=== PATIENT | female | born 1950 | race Asian ===

== ENCOUNTER → 2016-12-29 | Outpatient (CLI) | payer MEDICARE, OTHER ==
--- NOTE | 2016-12-30 16:57 | RADRPT ---
Echocardiogram Report Patient Name: VAMSI AL Gender: Female Date: 1950 Study Date: 29-Dec-2016 Glass Bender: [facility] Location: EKG Ref. Physician: DAVID AUGUSTE Quality: Good Procedures: Transthoracic echocardiogram with complete 2D, M-Mode, and doppler examination. Indications: Coronary Artery Disease. 2D/M Mode Doppler Measurement Value Normal Ranges Measurement Value Normal Ranges LVIDd 2D 3.8 3.5 - 5.6 cm AV Peak Sid 1.2 m/sec LVIDs 2D 2.7 2.1 - 4.1 cm AV Peak PG 6.1 mmHg LVPWd 2D 1.2 0.6 - 1.1 cm LVOT Peak Sid 1.0 m/sec IVSd 2D 1.1 0.6 - 1.1 cm LVOT Peak PG 4.1 mmHg AoR Diam 2D 2.3 2.0 - 3.7 cm MV E Peak Sid 0.7 m/sec EDV 2D 61.9 cm3 MV A Peak Sid 0.6 m/sec ESV 2D 20.6 cm3 MV E/A 1.2 LA Dimen 2D 3.6 2.3 - 4.0 cm MV Decel Time 176 msec MV Decel [place] 4 MV E/A 1.2 Findings Left Ventricle: Normal left ventricular systolic function. Normal left ventricular cavity size. Left ventricular wall thickness upper limits of normal. Ejection fraction is visually estimated at 60 %. Tissue Doppler/Mitral Doppler indices are consistent with impaired relaxation (Stage I diastolic dysfunction). Right Ventricle: Normal right ventricular size. Normal right ventricular systolic function. Left Atrium: The left atrium is normal in size. Right Atrium: The right atrium is normal in size. Mitral Valve: Mild mitral annular calcification. Mild mitral valve regurgitation. Aortic Valve: Normal appearance of the aortic valve. Trace aortic valve regurgitation. Tricuspid Valve: Normal appearance of the tricuspid valve. There is trace tricuspid regurgitation. Pulmonic Valve: There is trace pulmonic regurgitation. Pericardium: Normal pericardium with no significant pericardial effusion. Aorta: Normal aortic root. IVC: Normal size and normal respiratory collapse consistent with normal right atrial pressure. Conclusions 1.Normal left ventricular systolic function. Normal left ventricular cavity size. Left ventricular wall thickness upper limits of normal. Ejection fraction is visually estimated at 60 %. Tissue Doppler/Mitral Doppler indices are consistent with impaired relaxation (Stage I diastolic dysfunction). 2.Normal right ventricular size. Normal right ventricular systolic function. 3.The left atrium is normal in size. 4.The right atrium is normal in size. 5.Mild mitral valve regurgitation. 6.No significant valvular stenosis or regurgitation seen of remaining visualized valves. 7.Normal pericardium with no significant pericardial effusion. Electronically Signed By: Myles Glass 30-Dec-2016 16:56:[id number] -0700 Patient Name: VAMSI AL Study Date: 29-Dec-[id number]
== END | disposition home or self-care (01) ==
LOC: EKG 09:45
PROVIDERS: ATTEND Internal Medicine
DX: I10 Essential (primary) hypertension (principal); E11.9 Type 2 diabetes mellitus without complications
CPT/HCPCS: 93306